=== PATIENT | female | born 1995 | race Caucasian/White ===

== ENCOUNTER 2018-04-22 16:19 | Inpatient (IN) | payer MEDICAID ==
[2018-04-22] MEDS: LACTATED RINGER'S 1,000 ML IV ×2 (17:19→23:02)
[2018-04-22 18:27] LABS: ADD MAN DIFF? NO
[2018-04-22 18:29] LABS: BASOPHILS % 0.2 % (0.0-2.0); EOSINOPHILS % 0.4 % (0.0-7.0); HEMATOCRIT 28.9 % (37.0-47.0); MEAN CORPUSCULAR HEMOGLOBIN 32.7 pg (29.0-33.0); MEAN CORPUSCULAR HGB CONC 34.6 g/dl (32.0-37.0); MEAN CORPUSCULAR VOLUME 94.4 fl (82.0-101.0); MEAN PLATELET VOLUME 10.8 fl (7.4-10.4); MONOCYTE # 0.5 10^3/ul (0.3-0.9); MONOCYTES % 6.7 % (0.0-11.0); NEUTROPHIL # 5.4 10^3/ul (1.6-7.5); NEUTROPHILS % 67.5 % (39.0-77.0); PLATELET COUNT 176 10^3/UL (140-415); RED BLOOD COUNT 3.06 10^6/ul (4.20-5.40); RED CELL DISTRIBUTION WIDTH 12.4 % (11.5-14.5)
[2018-04-22 18:29] LABS: WHITE BLOOD COUNT 8.1 10^3/ul (4.8-10.8)
[2018-04-22 18:32] LABS: ADD UMIC YES; UR ASCORBIC ACID NEGATIVE (NEGATIVE); UR BILIRUBIN (Dip) NEGATIVE (NEGATIVE); UR BLOOD (Dip) 1+ mg/dL (NEGATIVE); UR CLARITY CLEAR (CLEAR); UR COLOR COLORLESS (YELLOW); UR GLUCOSE (Dip) NEGATIVE (NEGATIVE); UR KETONES (Dip) NEGATIVE (NEGATIVE); UR LEUKOCYTE ESTERASE (Dip) NEGATIVE Leu/ul (NEGATIVE); UR NITRITE (Dip) NEGATIVE (NEGATIVE); UR RBC 0 /HPF (0-5); UR SPECIFIC GRAVITY (Dip) 1.003 (1.003-1.030); UR TOTAL PROTEIN (Dip) NEGATIVE (NEGATIVE); UR UROBILINOGEN (Dip) NEGATIVE (NEGATIVE); UR WBC 0 /HPF (0-5)
[2018-04-22 18:48] LABS: ALANINE AMINOTRANSFERASE 13 IU/L (13-69); ALBUMIN/GLOBULIN RATIO 1.07; ALKALINE PHOSPHATASE 63 IU/L (42-121); ANION GAP 8 (8-16); ASPARTATE AMINO TRANSFERASE 13 IU/L (15-46); BILIRUBIN,INDIRECT 0.5 mg/dl (0-1.1); BILIRUBIN,TOTAL 0.5 mg/dl (0.2-1.3); BLOOD UREA NITROGEN 6 mg/dl (7-20); CALCIUM 8.1 mg/dl (8.4-10.2); CARBON DIOXIDE 19 mmol/L (21-31); CHLORIDE 113 mmol/L (97-110); CREATININE 0.48 mg/dl (0.44-1.00); GLUCOSE 82 mg/dl (70-220); POTASSIUM 3.6 mmol/L (3.5-5.1); SODIUM 136 mmol/L (135-144); TOTAL PROTEIN 5.8 g/dl (6.1-8.1)
[2018-04-22] MEDS: ONDANSETRON 4 MG INJ IV (21:38)
[2018-04-23 00:40] LABS: RUPTURE FETAL MEMBRANES NEGATIVE (NEGATIVE)
[2018-04-23] MEDS: BETAMET NA PHOS/AC(6 MG/ML) 5ML INJ IM (05:00)
[2018-04-23] MEDS: MAGNESIUM SULFATE 4 GM/100 ML 100 ML IV (05:16)
[2018-04-23] MEDS: AMPICILLIN 2 GM/NS (PMX) 100 ML IVPB ×2 (05:25→11:56)
[2018-04-23] MEDS: LACTATED RINGER'S 1,000 ML IV ×2 (06:33→08:20)
[2018-04-23] MEDS: MAGNESIUM SULFATE 20 GM/500 ML 500 ML IV (06:45)
[2018-04-23] MEDS: PRENATAL VITAMIN PO (08:21)
[2018-04-23] MEDS: FERROUS SULFATE (EC) 325 MG TAB PO (08:21)
[2018-04-23 09:28] LABS: PARTIAL THROMBOPLASTIN TIME 27.3 Sec (25.0-35.0); PROTIME 13.3 Sec (11.9-14.9)
[2018-04-23 14:08] LABS: MAGNESIUM 5.6 mg/dl (1.7-2.5)
[2018-04-23 16:00] LABS: RAPID PLASMA REAGIN NONREACTIVE (NR)
== END 2018-04-23 21:25 | disposition home or self-care (01) | DRG 778 ==
LOC: OBT 16:19 → L-D 16:20 → PP1 04-23 05:40
DX: O60.02 Preterm labor without delivery, second trimester (principal); O26.852 Spotting complicating pregnancy, second trimester; O99.012 Anemia complicating pregnancy, second trimester; D64.9 Anemia, unspecified; O26.892 Other specified pregnancy related conditions, second trimester; E86.0 Dehydration; O21.2 Late vomiting of pregnancy; Z3A.27 27 weeks gestation of pregnancy
CPT/HCPCS: 76775; 76815; 76817; 80053; 81001; 83735; 84112; 85025; 85610; 85730; 86592; 86850; 86900; 86901; 87086; 96360; 96361

== ENCOUNTER 2018-04-24 06:48 | Outpatient (CLI) | payer MEDICAID ==
[2018-04-24] MEDS: BETAMET NA PHOS/AC(6 MG/ML) 5ML INJ IM (07:17)
== END 2018-04-24 08:10 | disposition home or self-care (01) ==
LOC: OBT 06:48 → L-D 06:49 → OBT 08:10
DX: O36.8930 Maternal care for other specified fetal problems, third trimester, not applicable or unspecified (principal); Z3A.28 28 weeks gestation of pregnancy
CPT/HCPCS: Z7500

== ENCOUNTER 2018-04-29 09:42 | Outpatient (CLI) | payer MEDICAID ==
[2018-04-29 11:38] LABS: ADD MAN DIFF? NO
[2018-04-29 11:52] LABS: ADD UMIC NO; UR ASCORBIC ACID NEGATIVE (NEGATIVE); UR BILIRUBIN (Dip) NEGATIVE (NEGATIVE); UR BLOOD (Dip) NEGATIVE (NEGATIVE); UR CLARITY CLEAR (CLEAR); UR COLOR COLORLESS (YELLOW); UR GLUCOSE (Dip) NEGATIVE (NEGATIVE); UR KETONES (Dip) NEGATIVE (NEGATIVE); UR LEUKOCYTE ESTERASE (Dip) NEGATIVE Leu/ul (NEGATIVE); UR NITRITE (Dip) NEGATIVE (NEGATIVE); UR SPECIFIC GRAVITY (Dip) 1.004 (1.003-1.030); UR TOTAL PROTEIN (Dip) NEGATIVE (NEGATIVE); UR UROBILINOGEN (Dip) NEGATIVE (NEGATIVE)
[2018-04-29 13:15] LABS: WHITE BLOOD COUNT 10.3 10^3/ul (4.8-10.8)
[2018-04-29 13:15] LABS: BASOPHILS % 0.3 % (0.0-2.0); EOSINOPHILS # 0.1 10^3/ul (0.0-0.5); EOSINOPHILS % 0.7 % (0.0-7.0); HEMOGLOBIN 10.4 g/dl (12.0-16.0); IMMATURE GRANS #M 0.11 10^3/ul; IMMATURE GRANS % (M) 1.1 %; LYMPHOCYTES # 2.3 10^3/ul (0.8-2.9); MEAN CORPUSCULAR HEMOGLOBIN 32.8 pg (29.0-33.0); MEAN CORPUSCULAR HGB CONC 34.7 g/dl (32.0-37.0); MEAN CORPUSCULAR VOLUME 94.6 fl (82.0-101.0); MEAN PLATELET VOLUME 11.2 fl (7.4-10.4); MONOCYTE # 0.8 10^3/ul (0.3-0.9); MONOCYTES % 7.7 % (0.0-11.0); NEUTROPHILS % 68.2 % (39.0-77.0); PLATELET COUNT 184 10^3/UL (140-415); RED BLOOD COUNT 3.17 10^6/ul (4.20-5.40); RED CELL DISTRIBUTION WIDTH 12.3 % (11.5-14.5)
== END 2018-04-29 14:22 | disposition home or self-care (01) ==
LOC: OBT 09:42 → L-D 09:42 → OBT 14:22
DX: O60.03 Preterm labor without delivery, third trimester (principal); Z3A.28 28 weeks gestation of pregnancy
CPT/HCPCS: 76817; 81003; 85025; 87086